=== PATIENT | male | born 1990 | race Caucasian/White ===

== ENCOUNTER 2020-06-25 09:47 | Inpatient (IN) | payer MEDICAID, OTHER ==
[~2020-06-25] VITALS: Ht 165.1 cm; Wt 113.4 kg
[2020-06-25] MEDS ORDERED: MORPHINE SULFATE 4 MG/ML CPJ (NOT FOR IM USE) IV STA (10:23)
[2020-06-25] MEDS ORDERED: MAGNESIUM/ALUMINUM HYDROXIDE/SIMETHICONE 30ML UDC PO STA (10:23)
[2020-06-25] MEDS ORDERED: FAMOTIDINE 20MG/2ML VIAL IV STA (10:23)
[2020-06-25] MEDS ORDERED: SODIUM CHLORIDE 0.9% 1,000 ML IV ONE (10:30)
[2020-06-25 10:38] LABS: EOSINOPHILS % 0.3 % (0.0-5.0); HEMATOCRIT. 35.2 % (42.0-52.0); HEMOGLOBIN. 12.3 g/dL (14.0-18.0); LYMPHOCYTES % 11.1 % (20.0-50.0); MEAN CORPUSCULAR HEMOGLOBIN 31.2 pg (28.0-32.0); MEAN CORPUSCULAR VOLUME 89.1 fL (80.0-94.0); MEAN PLATELET VOLUME 8.1 fl (7.4-10.4); MONOCYTES % 8.6 % (2.0-8.0); PLATELET 113 x1000/uL (130-400); RED BLOOD CELL COUNT 3.95 mill/uL (4.7-6.1); RED CELL DISTRIBUTION WIDTH 14.9 % (11.6-14.6)
[2020-06-25 10:48] LABS: INR 2.2; PROTHROMBIN TIME 22.3 sec (9.6-11.0)
[2020-06-25 10:52] LABS: CHLORIDE 89 mEq/L (98-107)
[2020-06-25 10:56] LABS: CLARITY URINE TURBID (CLEAR); COLOR URINE ORANGE (YELLOW); KETONES URINE 1+ (NEGATIVE); LEUKOCYTE ESTERASE URINE 2+ (NEGATIVE); NITRITE URINE POSITIVE (NEGATIVE); OCCULT BLOOD URINE NEGATIVE (NEGATIVE); PROTEIN URINE 1+ (NEGATIVE); SPECIFIC GRAVITY URINE 1.024 (1.005-1.030); UROBILINOGEN URINE >=8.0 E.U./dL (0.2-1.0)
[2020-06-25] MEDS ORDERED: METRONIDAZOLE 500 MG PREMIX 100 ML IV NR (15:15)
[2020-06-25] MEDS ORDERED: CEFTRIAXONE 1 G PREMIX 50 ML IV NR (15:15)
[2020-06-25] MEDS ORDERED: SODIUM CHLORIDE 0.9% 1,000 ML IV NR (15:15)
[2020-06-25] MEDS ORDERED: MORPHINE SULFATE 4 MG/ML CPJ (NOT FOR IM USE) IV ONE (15:30)
[2020-06-25] MEDS ORDERED: IOHEXOL-300 100 ML BOTTLE ONE (15:35)
[2020-06-25] MEDS ORDERED: POTASSIUM CHLORIDE INJ 40 MEQ in DEXT 5% WATER 250 ML IV NR (16:00)
[2020-06-25] MEDS ORDERED: IPRATROPIUM/ALBUTEROL 0.5-3(2.5)MG/3ML NEB HHN PRN (17:45)
[2020-06-25] MEDS ORDERED: CLONIDINE 0.1MG TABLET PO PRN (17:45)
[2020-06-25] MEDS: SODIUM CHLORIDE 0.9% 1,000 ML IV SCH ×2 (17:59→23:44)
[2020-06-25] MEDS ORDERED: ONDANSETRON HCL 4MG/2ML INJ IV ONE (18:15)
[2020-06-25] MEDS: ACETAMINOPHEN 325MG TABLET PO PRN (18:23)
[2020-06-25] MEDS: DIPHENHYDRAMINE 50MG/ML VIAL IV PRN (18:25)
[2020-06-25 21:24] VITALS: BP 130/84
[2020-06-25] MEDS ORDERED: INFLUENZA VACCINE 05/PF 0.5 ML VIAL IM ONE (22:30)
[2020-06-25] MEDS ORDERED: PNEUMOCOCCAL 23-VAL P-SAC VAC 0.5 ML IM ONE (22:30)
[2020-06-25] MEDS: ONDANSETRON HCL 4MG/2ML INJ IV PRN (22:32)
[2020-06-25] MEDS: MORPHINE SULFATE 2 MG/ML CPJ (NOT FOR IM USE) IV PRN (22:35)
[2020-06-25] MEDS: METRONIDAZOLE 500 MG PREMIX 100 ML IV SCH (23:43)
[2020-06-26 00:16] VITALS: BP 127/69
[2020-06-26] MEDS: ONDANSETRON HCL 4MG/2ML INJ IV PRN ×3 (03:06→20:39)
[2020-06-26] MEDS: MORPHINE SULFATE 2 MG/ML CPJ (NOT FOR IM USE) IV PRN ×3 (03:08→20:40)
[2020-06-26 03:31] VITALS: BP 122/71
[2020-06-26] MEDS ORDERED: OLAN10TA3 PO (04:19)
[2020-06-26 05:35] LABS: BASOPHILS % 0.6 % (0.0-2.0); EOSINOPHILS % 0.6 % (0.0-5.0); HEMATOCRIT. 32.4 % (42.0-52.0); HEMOGLOBIN. 11.3 g/dL (14.0-18.0); LYMPHOCYTES % 7.5 % (20.0-50.0); MEAN CORPUSCULAR HEMOGLOBIN 31.1 pg (28.0-32.0); MEAN CORPUSCULAR VOLUME 89.2 fL (80.0-94.0); MONOCYTES % 9.7 % (2.0-8.0); NEUTROPHILS % 81.6 % (40.0-76.0); PLATELET 94 x1000/uL (130-400); RED BLOOD CELL COUNT 3.63 mill/uL (4.7-6.1); RED CELL DISTRIBUTION WIDTH 15.3 % (11.6-14.6)
[2020-06-26 05:46] LABS: CHLORIDE 95 mEq/L (98-107)
[2020-06-26 05:55] LABS: LDL CHOLESTEROL 65 mg/dL (5-100)
[2020-06-26 05:57] LABS: HDL CHOLESTEROL 12 mg/dL (40-59)
[2020-06-26] MEDS: METRONIDAZOLE 500 MG PREMIX 100 ML IV SCH ×3 (06:47→22:15)
[2020-06-26 08:00] VITALS: BP 130/76
[2020-06-26 12:00] VITALS: BP 117/74
[2020-06-26] MEDS ORDERED: CEFTRIAXONE 1,000 MG in DEXTROSE 5% WATER 50 ML IV SCH (15:00)
[2020-06-26] MEDS: SODIUM CHLORIDE 0.9% 1,000 ML IV SCH (15:59)
[2020-06-26 16:00] VITALS: BP 130/75
[2020-06-26] MEDS: CHLORDIAZEPOXIDE 25MG CAPSULE PO SCH ×2 (16:20→22:15)
[2020-06-26] MEDS: HYDROCODONE/ACETAMINOPHEN 5/325MG TABLET PO PRN (17:43)
[2020-06-26 20:00] VITALS: BP 116/65
[2020-06-26] MEDS: CEFTRIAXONE 1,000 MG in DEXTROSE 5% WATER 50 ML IV SCH (20:36)
[2020-06-27] VITALS: BP 117/71
[2020-06-27] MEDS: ONDANSETRON HCL 4MG/2ML INJ IV PRN (01:39)
[2020-06-27] MEDS: MORPHINE SULFATE 2 MG/ML CPJ (NOT FOR IM USE) IV PRN ×3 (01:40→15:12)
[2020-06-27 04:00] VITALS: BP 127/75
[2020-06-27] MEDS: DIPHENHYDRAMINE 50MG/ML VIAL IV PRN ×2 (04:39→16:26)
[2020-06-27] MEDS: SODIUM CHLORIDE 0.9% 1,000 ML IV SCH ×3 (04:49→21:13)
[2020-06-27] MEDS: METRONIDAZOLE 500 MG PREMIX 100 ML IV SCH ×3 (06:12→22:00)
[2020-06-27] MEDS: CHLORDIAZEPOXIDE 25MG CAPSULE PO SCH ×3 (06:12→22:28)
[2020-06-27 08:00] VITALS: BP 133/80
[2020-06-27 10:33] LABS: HEMATOCRIT. 22.4 % (42.0-52.0); HEMOGLOBIN. 7.7 g/dL (14.0-18.0); MEAN CORPUSCULAR HEMOGLOBIN 31.5 pg (28.0-32.0); MEAN CORPUSCULAR VOLUME 91.1 fL (80.0-94.0); MEAN PLATELET VOLUME 7.9 fl (7.4-10.4); PLATELET 75 x1000/uL (130-400); RED BLOOD CELL COUNT 2.45 mill/uL (4.7-6.1); RED CELL DISTRIBUTION WIDTH 15.5 % (11.6-14.6)
[2020-06-27 12:02] VITALS: BP 125/73
[2020-06-27 12:35] LABS: PLATELET ESTIMATE DECREASED
[2020-06-27 13:50] LABS: CHLORIDE 96 mEq/L (98-107)
[2020-06-27 13:55] LABS: AMYLASE 33 IU/L (25-115)
[2020-06-27 13:56] LABS: TOTAL IRON BINDING CAPACITY 86 ug/dL (250-450)
[2020-06-27 16:04] VITALS: BP 127/67
[2020-06-27 16:26] LABS: HEPATITIS B SURFACE ANTIGEN NEGATIVE
[2020-06-27 16:55] LABS: HEPATITIS A AB IGM NEGATIVE (NEGATIVE)
[2020-06-27 20:00] VITALS: BP 129/73
[2020-06-27] MEDS: CEFTRIAXONE 1,000 MG in DEXTROSE 5% WATER 50 ML IV SCH ×2 (20:00→23:40)
[2020-06-27] MEDS: OLANZAPINE 10 MG/VIAL IM PRN (20:13)
[2020-06-27] MEDS: LACTULOSE 20G/30ML UDC PO SCH (22:29)
[2020-06-27] MEDS: HALOPERIDOL LACTATE 5MG/ML VIAL IM PRN (23:13)
[2020-06-28] VITALS (7 sets, daily range): BP systolic 100–135; BP diastolic 49–80
[2020-06-28] MEDS: MORPHINE SULFATE 2 MG/ML CPJ (NOT FOR IM USE) IV PRN (02:20)
[2020-06-28] MEDS: SODIUM CHLORIDE 0.9% 1,000 ML IV SCH ×3 (05:13→20:41)
[2020-06-28] MEDS: LACTULOSE 20G/30ML UDC PO SCH ×3 (05:36→21:38)
[2020-06-28] MEDS: CHLORDIAZEPOXIDE 25MG CAPSULE PO SCH ×3 (05:36→21:39)
[2020-06-28] MEDS: METRONIDAZOLE 500 MG PREMIX 100 ML IV SCH ×3 (05:46→21:39)
[2020-06-28 06:31] LABS: BASOPHILS % 0.8 % (0.0-2.0); CHLORIDE 99 mEq/L (98-107); EOSINOPHILS % 0.4 % (0.0-5.0); HEMATOCRIT. 31.4 % (42.0-52.0); HEMOGLOBIN. 10.9 g/dL (14.0-18.0); LYMPHOCYTES % 9.1 % (20.0-50.0); MEAN CORPUSCULAR HEMOGLOBIN 31.1 pg (28.0-32.0); MEAN CORPUSCULAR VOLUME 89.6 fL (80.0-94.0); MEAN PLATELET VOLUME 7.9 fl (7.4-10.4); MONOCYTES % 8.8 % (2.0-8.0); NEUTROPHILS % 80.9 % (40.0-76.0); PLATELET 126 x1000/uL (130-400); RED BLOOD CELL COUNT 3.51 mill/uL (4.7-6.1); RED CELL DISTRIBUTION WIDTH 15.6 % (11.6-14.6)
[2020-06-28 06:37] LABS: AMYLASE 32 IU/L (25-115)
[2020-06-28] MEDS ORDERED: LORAZEPAM 2MG/ML CPJ IV NR (14:45)
[2020-06-28] MEDS: DIPHENHYDRAMINE 50MG/ML VIAL IV PRN ×2 (16:12→21:39)
[2020-06-28] MEDS: HALOPERIDOL LACTATE 5MG/ML VIAL IM PRN (17:39)
[2020-06-28] MEDS ORDERED: DIPHENHYDRAMINE 50MG/ML VIAL IV NR (18:45)
[2020-06-28] MEDS: LORAZEPAM 2MG/ML CPJ IV PRN (18:53)
[2020-06-28] MEDS: CEFTRIAXONE 1,000 MG in DEXTROSE 5% WATER 50 ML IV SCH (20:40)
[2020-06-28] MEDS: OLANZAPINE 10 MG/VIAL IM PRN (21:39)
[2020-06-29] VITALS: BP 122/73
[2020-06-29 04:00] VITALS: BP 131/67
[2020-06-29] MEDS: SODIUM CHLORIDE 0.9% 1,000 ML IV SCH ×2 (04:35→13:54)
[2020-06-29] MEDS: LACTULOSE 20G/30ML UDC PO SCH ×3 (05:23→22:45)
[2020-06-29] MEDS: LORAZEPAM 2MG/ML CPJ IV PRN ×2 (05:23→13:51)
[2020-06-29] MEDS: METRONIDAZOLE 500 MG PREMIX 100 ML IV SCH ×3 (05:23→21:36)
[2020-06-29] MEDS: CHLORDIAZEPOXIDE 25MG CAPSULE PO SCH ×3 (05:23→22:42)
[2020-06-29 08:00] VITALS: BP 110/70
[2020-06-29 08:19] LABS: HEMATOCRIT. 31.3 % (42.0-52.0); HEMOGLOBIN. 10.6 g/dL (14.0-18.0); MEAN CORPUSCULAR HEMOGLOBIN 31.1 pg (28.0-32.0); MEAN CORPUSCULAR VOLUME 91.3 fL (80.0-94.0); MEAN PLATELET VOLUME 7.5 fl (7.4-10.4); PLATELET 120 x1000/uL (130-400); RED BLOOD CELL COUNT 3.43 mill/uL (4.7-6.1); RED CELL DISTRIBUTION WIDTH 16.3 % (11.6-14.6)
[2020-06-29 08:29] LABS: CHLORIDE 104 mEq/L (98-107)
[2020-06-29 08:33] LABS: AMYLASE 36 IU/L (25-115)
[2020-06-29] MEDS ORDERED: POTASSIUM CHLORIDE 20MEQ TABLET SR PO SCH (08:45)
[2020-06-29 09:41] LABS: PLATELET ESTIMATE SLIGHTLY DECREASED
[2020-06-29 12:00] VITALS: BP 120/77
[2020-06-29 16:00] VITALS: BP 119/62
[2020-06-29 20:00] VITALS: BP 107/62
[2020-06-29] MEDS: CEFTRIAXONE 1,000 MG in DEXTROSE 5% WATER 50 ML IV SCH (20:19)
[2020-06-30] VITALS (7 sets, daily range): BP systolic 110–138; BP diastolic 63–105
[2020-06-30] MEDS: SODIUM CHLORIDE 0.9% 1,000 ML IV SCH ×3 (02:50→13:18)
[2020-06-30] MEDS: METRONIDAZOLE 500 MG PREMIX 100 ML IV SCH ×2 (05:32→13:17)
[2020-06-30] MEDS: CHLORDIAZEPOXIDE 25MG CAPSULE PO SCH ×3 (05:32→22:29)
[2020-06-30] MEDS: LACTULOSE 20G/30ML UDC PO SCH ×3 (05:33→22:00)
[2020-06-30 05:36] LABS: CHLORIDE 111 mEq/L (98-107)
[2020-06-30 05:42] LABS: AMYLASE 58 IU/L (25-115)
[2020-06-30 06:04] LABS: BASOPHILS % 0.8 % (0.0-2.0); EOSINOPHILS % 0.7 % (0.0-5.0); HEMATOCRIT. 31.5 % (42.0-52.0); HEMOGLOBIN. 10.8 g/dL (14.0-18.0); LYMPHOCYTES % 8.5 % (20.0-50.0); MEAN CORPUSCULAR HEMOGLOBIN 31.7 pg (28.0-32.0); MEAN CORPUSCULAR VOLUME 92.2 fL (80.0-94.0); MEAN PLATELET VOLUME 7.4 fl (7.4-10.4); MONOCYTES % 10.8 % (2.0-8.0); NEUTROPHILS % 79.2 % (40.0-76.0); PLATELET 129 x1000/uL (130-400); RED BLOOD CELL COUNT 3.42 mill/uL (4.7-6.1); RED CELL DISTRIBUTION WIDTH 16.6 % (11.6-14.6)
[2020-06-30] MEDS: LORAZEPAM 2MG/ML CPJ IV PRN ×3 (10:15→19:35)
[2020-06-30] MEDS: HALOPERIDOL LACTATE 5MG/ML VIAL IM PRN ×2 (13:57→20:37)
[2020-06-30] MEDS: DIPHENHYDRAMINE 50MG/ML VIAL IV PRN (17:44)
[2020-06-30] MEDS: CEFTRIAXONE 1,000 MG in DEXTROSE 5% WATER 50 ML IV SCH (19:35)
[2020-06-30] MEDS: RIFAXIMIN 550 MG TABLET PO SCH (22:24)
[2020-06-30] MEDS ORDERED: OLANZAPINE 10 MG/VIAL IM NR (23:30)
[2020-07-01] VITALS (7 sets, daily range): BP systolic 102–122; BP diastolic 62–86
[2020-07-01] MEDS ORDERED: LORAZEPAM 2MG/ML CPJ IM PRN (01:15)
[2020-07-01] MEDS: HALOPERIDOL LACTATE 5MG/ML VIAL IM PRN ×2 (04:48→13:58)
[2020-07-01] MEDS: LACTULOSE 20G/30ML UDC PO SCH (05:15)
[2020-07-01] MEDS: METRONIDAZOLE 500 MG PREMIX 100 ML IV SCH (06:24)
[2020-07-01] MEDS: CHLORDIAZEPOXIDE 25MG CAPSULE PO SCH ×2 (06:54→14:39)
[2020-07-01 07:28] LABS: BASOPHILS % 0.9 % (0.0-2.0); EOSINOPHILS % 0.6 % (0.0-5.0); HEMATOCRIT. 31.6 % (42.0-52.0); HEMOGLOBIN. 10.8 g/dL (14.0-18.0); LYMPHOCYTES % 8.5 % (20.0-50.0); MEAN CORPUSCULAR HEMOGLOBIN 31.6 pg (28.0-32.0); MEAN CORPUSCULAR VOLUME 92.4 fL (80.0-94.0); MONOCYTES % 7.6 % (2.0-8.0); NEUTROPHILS % 82.4 % (40.0-76.0); PLATELET 136 x1000/uL (130-400); RED BLOOD CELL COUNT 3.42 mill/uL (4.7-6.1); RED CELL DISTRIBUTION WIDTH 17.1 % (11.6-14.6)
[2020-07-01 08:11] LABS: CHLORIDE 115 mEq/L (98-107)
[2020-07-01 08:19] LABS: AMYLASE 123 IU/L (25-115)
[2020-07-01] MEDS: RIFAXIMIN 550 MG TABLET PO SCH ×2 (08:26→20:03)
[2020-07-01] MEDS: HYDROCODONE/ACETAMINOPHEN 5/325MG TABLET PO PRN (08:29)
[2020-07-01] MEDS ORDERED: LORAZEPAM 2MG/ML CPJ IV NR (08:30)
[2020-07-01] MEDS ORDERED: LACTULOSE 300 ML in WATER FOR IRRIGATION,STERILE 700 ML IR NR (10:00)
[2020-07-01] MEDS: DIPHENHYDRAMINE 50MG/ML VIAL IV PRN (13:58)
[2020-07-01] MEDS ORDERED: KCL 20MEQ/100ML PREMIX 100 ML IV ONE (16:30)
[2020-07-01] MEDS: SODIUM CHLORIDE 0.45% 1,000 ML IV SCH (16:40)
[2020-07-01] MEDS: LORAZEPAM 2MG/ML CPJ IV PRN (17:11)
[2020-07-01] MEDS ORDERED: HYDROCODONE/ACETAMINOPHEN 5/325MG TABLET PO PRN (19:00)
[2020-07-01 19:17] LABS: PHOSPHORUS 2.1 mg/dL (2.5-4.9)
[2020-07-02] VITALS: BP 105/60
[2020-07-02 04:00] VITALS: BP 128/79
[2020-07-02] MEDS: LORAZEPAM 2MG/ML CPJ IV PRN ×3 (04:29→22:53)
[2020-07-02 07:27] LABS: BASOPHILS % 0.5 % (0.0-2.0); EOSINOPHILS % 0.7 % (0.0-5.0); HEMATOCRIT. 33.4 % (42.0-52.0); HEMOGLOBIN. 11.4 g/dL (14.0-18.0); LYMPHOCYTES % 7.5 % (20.0-50.0); MEAN CORPUSCULAR HEMOGLOBIN 31.8 pg (28.0-32.0); MEAN CORPUSCULAR VOLUME 93.7 fL (80.0-94.0); MEAN PLATELET VOLUME 7.3 fl (7.4-10.4); MONOCYTES % 6.8 % (2.0-8.0); NEUTROPHILS % 84.5 % (40.0-76.0); PLATELET 143 x1000/uL (130-400); RED BLOOD CELL COUNT 3.57 mill/uL (4.7-6.1)
[2020-07-02 07:29] LABS: CHLORIDE 115 mEq/L (98-107)
[2020-07-02 07:37] LABS: AMYLASE 94 IU/L (25-115)
[2020-07-02 08:00] VITALS: BP 130/75
[2020-07-02] MEDS: SODIUM CHLORIDE 0.45% 1,000 ML IV SCH ×3 (09:53→22:53)
[2020-07-02] MEDS: RIFAXIMIN 550 MG TABLET PO SCH ×2 (09:53→22:52)
[2020-07-02 12:00] VITALS: BP 126/85
[2020-07-02 16:00] VITALS: BP 107/88
[2020-07-02] MEDS: HALOPERIDOL LACTATE 5MG/ML VIAL IM PRN (16:54)
[2020-07-02 20:00] VITALS: BP 144/78
[2020-07-02 21:09] LABS: ETHANOL BLOOD < 10 mg/dL
[2020-07-02 21:14] LABS: T4 FREE 1.24 ng/dL (0.76-1.46)
[2020-07-02 21:19] LABS: VITAMIN B12 SERUM > 2000.0 pg/mL (211-911)
[2020-07-03] VITALS: BP 115/55
[2020-07-03] MEDS: HALOPERIDOL LACTATE 5MG/ML VIAL IM PRN ×3 (01:37→23:07)
[2020-07-03 04:00] VITALS: BP 121/59
[2020-07-03] MEDS: LORAZEPAM 2MG/ML CPJ IV PRN (06:29)
[2020-07-03 07:57] VITALS: BP 121/69
[2020-07-03] MEDS: FOLIC ACID 1MG TABLET PO SCH (09:00)
[2020-07-03] MEDS: RIFAXIMIN 550 MG TABLET PO SCH ×2 (09:00→21:20)
[2020-07-03] MEDS: MULTIVITAMINS,THER W-MINERALS TABLET PO SCH (09:00)
[2020-07-03] MEDS: THIAMINE HCL 100MG TABLET PO SCH (09:00)
[2020-07-03] MEDS ORDERED: LORAZEPAM 2MG/ML CPJ IV NR (09:30)
[2020-07-03] MEDS: DIPHENHYDRAMINE 50MG/ML VIAL IV PRN (09:37)
[2020-07-03 11:50] VITALS: BP 116/73
[2020-07-03 15:58] VITALS: BP 128/76
[2020-07-03] MEDS: SODIUM CHLORIDE 0.45% 1,000 ML IV SCH (17:30)
[2020-07-03 19:10] LABS: HEMATOCRIT. 33.5 % (42.0-52.0); HEMOGLOBIN. 11.5 g/dL (14.0-18.0); MEAN CORPUSCULAR HEMOGLOBIN 32.4 pg (28.0-32.0); MEAN CORPUSCULAR VOLUME 94.7 fL (80.0-94.0); MEAN PLATELET VOLUME 7.5 fl (7.4-10.4); PLATELET 154 x1000/uL (130-400); RED BLOOD CELL COUNT 3.53 mill/uL (4.7-6.1)
[2020-07-03 19:27] LABS: CHLORIDE 120 mEq/L (98-107)
[2020-07-03 19:40] LABS: AMYLASE 115 IU/L (25-115)
[2020-07-03 19:49] LABS: PLATELET ESTIMATE NORMAL
[2020-07-03] MEDS ORDERED: CEFTRIAXONE 1,000 MG in DEXTROSE 5% WATER 50 ML IV SCH (22:00)
[2020-07-03] MEDS: METRONIDAZOLE 500 MG PREMIX 100 ML IV SCH (22:01)
[2020-07-04] VITALS (9 sets, daily range): BP systolic 88–142; BP diastolic 43–77
[2020-07-04] MEDS: SODIUM CHLORIDE 0.45% 1,000 ML IV SCH ×2 (04:17→10:26)
[2020-07-04] MEDS: METRONIDAZOLE 500 MG PREMIX 100 ML IV SCH ×2 (05:25→16:41)
[2020-07-04] MEDS: LORAZEPAM 2MG/ML CPJ IV PRN ×2 (05:25→15:40)
[2020-07-04 06:18] LABS: HEMOGLOBIN. 11.4 g/dL (14.0-18.0); MEAN CORPUSCULAR HEMOGLOBIN 31.9 pg (28.0-32.0); MEAN CORPUSCULAR VOLUME 95.3 fL (80.0-94.0); MEAN PLATELET VOLUME 7.9 fl (7.4-10.4); PLATELET 172 x1000/uL (130-400); RED BLOOD CELL COUNT 3.57 mill/uL (4.7-6.1); RED CELL DISTRIBUTION WIDTH 18.1 % (11.6-14.6)
[2020-07-04 06:31] LABS: CHLORIDE 119 mEq/L (98-107)
[2020-07-04 06:50] LABS: AMYLASE 99 IU/L (25-115)
[2020-07-04 06:52] LABS: PHOSPHORUS 2.9 mg/dL (2.5-4.9)
[2020-07-04] MEDS: MULTIVITAMINS,THER W-MINERALS TABLET PO SCH (09:00)
[2020-07-04] MEDS: RIFAXIMIN 550 MG TABLET PO SCH ×2 (09:00→21:00)
[2020-07-04] MEDS: THIAMINE HCL 100MG TABLET PO SCH (09:00)
[2020-07-04] MEDS: FOLIC ACID 1MG TABLET PO SCH (09:00)
[2020-07-04 11:05] LABS: BG BASE EXCESS -2.4 mmol/L (-2.0-2.0); BG CARBOXYHEMOGLOBIN 1.2 % (0.5-1.5); BG DEOXYHEMOGLOBIN 12.2 % (0.0-5.0); BG FRACTION INSPIRED OXYGEN 32; BG HCO3 ACT 22.1 mmol/L (22.0-26.0); BG METHEMOGLOBIN 0.3 % (0.0-1.5); BG OXYGEN SATURATION 87.6 % (92.0-98.5); BG OXYHEMOGLOBIN 86.3 % (94.0-97.0); BG PCO2 37.1 mmHg (35.0-45.0); BG PH 7.393 (7.350-7.450); BG PO2 57.9 mmHg (75.0-100.0); BG TOTAL HEMOGLOBIN 11.7 g/dL (12.0-18.0); BG VENT MODE NASAL CANNULA
[2020-07-04] MEDS ORDERED: HYDROMORPHONE HCL/PF 2MG/ML CPJ IV PRN (15:30)
[2020-07-04] MEDS: ONDANSETRON HCL 4MG/2ML INJ IV PRN (15:47)
[2020-07-04 16:26] LABS: PLATELET ESTIMATE NORMAL
[2020-07-04] MEDS: MEROPENEM 1,000 MG in SODIUM CHLORIDE 0.9% 100 ML IV SCH (20:31)
[2020-07-04] MEDS: SODIUM CHLORIDE 0.9% 1,000 ML IV SCH (20:32)
[2020-07-04] MEDS: IPRATROPIUM/ALBUTEROL 0.5-3(2.5)MG/3ML NEB HHN SCH (21:05)
[2020-07-04] MEDS: ACETYLCYSTEINE 100MG/ML 10% VIAL 4ML INH SCH (21:05)
[2020-07-04] MEDS: AZITHROMYCIN 500 MG in DEXT 5% WATER 250 ML IV SCH (21:50)
[2020-07-05] VITALS (56 sets, daily range): BP systolic 66–156; BP diastolic 19–87
[2020-07-05] MEDS: IPRATROPIUM/ALBUTEROL 0.5-3(2.5)MG/3ML NEB HHN SCH ×4 (00:54→20:26)
[2020-07-05] MEDS: LORAZEPAM 2MG/ML CPJ IV PRN (01:56)
[2020-07-05] MEDS: MEROPENEM 1,000 MG in SODIUM CHLORIDE 0.9% 100 ML IV SCH ×3 (05:23→15:45)
[2020-07-05] MEDS: ACETYLCYSTEINE 100MG/ML 10% VIAL 4ML INH SCH (06:00)
[2020-07-05 07:23] LABS: CHLORIDE 120 mEq/L (98-107)
[2020-07-05 07:28] LABS: HEMATOCRIT. 32.5 % (42.0-52.0); HEMOGLOBIN. 10.3 g/dL (14.0-18.0); MEAN CORPUSCULAR HEMOGLOBIN 32.2 pg (28.0-32.0); MEAN CORPUSCULAR VOLUME 101.6 fL (80.0-94.0); MEAN PLATELET VOLUME 8.6 fl (7.4-10.4); PLATELET 163 x1000/uL (130-400); RED CELL DISTRIBUTION WIDTH 20.4 % (11.6-14.6)
[2020-07-05 07:41] LABS: AMYLASE 73 IU/L (25-115); PHOSPHORUS 7.8 mg/dL (2.5-4.9)
[2020-07-05 08:53] LABS: BG BASE EXCESS -12.4 mmol/L (-2.0-2.0); BG CARBOXYHEMOGLOBIN 1.1 % (0.5-1.5); BG DEOXYHEMOGLOBIN 16.3 % (0.0-5.0); BG FRACTION INSPIRED OXYGEN 100; BG HCO3 ACT 16.1 mmol/L (22.0-26.0); BG METHEMOGLOBIN 0.3 % (0.0-1.5); BG OXYGEN SATURATION 83.5 % (92.0-98.5); BG OXYHEMOGLOBIN 82.3 % (94.0-97.0); BG PCO2 48.2 mmHg (35.0-45.0); BG PH 7.141 (7.350-7.450); BG PO2 62.1 mmHg (75.0-100.0); BG SAMPLE SITE RIGHT BRACHIAL; BG TOTAL HEMOGLOBIN 10.3 g/dL (12.0-18.0); BG VENT MODE MASK - NRB
[2020-07-05] MEDS: RIFAXIMIN 550 MG TABLET PO SCH ×2 (09:00→21:17)
[2020-07-05] MEDS: FOLIC ACID 1MG TABLET PO SCH (09:00)
[2020-07-05] MEDS: THIAMINE HCL 100MG TABLET PO SCH (09:00)
[2020-07-05] MEDS: MULTIVITAMINS,THER W-MINERALS TABLET PO SCH (09:00)
[2020-07-05] MEDS ORDERED: DEXTROSE 50% WATER 50ML SYRINGE IV ONE ×2 (09:00→09:01)
[2020-07-05] MEDS ORDERED: EPINEPHRINE 0.1MG/ML (1:10,000) 10ML SYR ONE (09:15)
[2020-07-05] MEDS ORDERED: CALCIUM CHLORIDE 1GM/10ML SYR IV ONE (09:15)
[2020-07-05] MEDS ORDERED: SODIUM BICARBONATE 8.4% 1 MEQ/ML 50ML SYR IV ONE ×2 (09:15→12:15)
[2020-07-05] MEDS ORDERED: ADENOSINE 3 MG/ML 2ML VIAL IV ONE (09:38)
[2020-07-05] MEDS ORDERED: FENTANYL CITRATE/PF 1,000 MCG in SODIUM CHLORIDE 0.9% 80 ML IV PRN (10:00)
[2020-07-05] MEDS ORDERED: ALBUMIN HUMAN 25GM/100ML (25%) IV NR (10:00)
[2020-07-05] MEDS ORDERED: SODIUM BICARBONATE 8.4% 1 MEQ/ML 50ML SYR IV NR (10:00)
[2020-07-05] MEDS ORDERED: NOREPINEPHRINE 8MG/250ML PMX 250 ML IV ONE (10:15)
[2020-07-05] MEDS: SODIUM BICARBONATE 100 MEQ in DEXTROSE 5% WATER 1,000 ML IV SCH (10:53)
[2020-07-05] MEDS: PHENYLEPHRINE 100 MG in DEXT 5% WATER 240 ML IV PRN (10:55)
[2020-07-05] MEDS ORDERED: SODIUM POLYSTYRENE SULFONATE 15 G/60 ML BOT NG SCH (11:00)
[2020-07-05 12:01] LABS: BG CARBOXYHEMOGLOBIN 0.5 % (0.5-1.5); BG DEOXYHEMOGLOBIN 16.8 % (0.0-5.0); BG FRACTION INSPIRED OXYGEN 100; BG HCO3 ACT 14.6 mmol/L (22.0-26.0); BG METHEMOGLOBIN 0.3 % (0.0-1.5); BG OXYGEN SATURATION 83.1 % (92.0-98.5); BG OXYHEMOGLOBIN 82.4 % (94.0-97.0); BG PCO2 56.4 mmHg (35.0-45.0); BG PH 7.032 (7.350-7.450); BG PO2 65.5 mmHg (75.0-100.0); BG SAMPLE SITE LEFT RADIAL; BG TOTAL HEMOGLOBIN 11.8 g/dL (12.0-18.0); BG TOTAL RESPIRATORY RATE 30 b/min; BG VENT MODE VENT - AC
[2020-07-05 12:56] LABS: INR 3.3; PROTHROMBIN TIME 32.3 sec (9.6-11.0)
[2020-07-05 12:59] LABS: CHLORIDE 119 mEq/L (98-107)
[2020-07-05 13:02] LABS: HEMATOCRIT. 34.8 % (42.0-52.0); HEMOGLOBIN. 10.6 g/dL (14.0-18.0); MEAN CORPUSCULAR VOLUME 105.6 fL (80.0-94.0); MEAN PLATELET VOLUME 9.8 fl (7.4-10.4); PLATELET 171 x1000/uL (130-400); RED CELL DISTRIBUTION WIDTH 22.2 % (11.6-14.6)
[2020-07-05 15:10] LABS: BG CARBOXYHEMOGLOBIN 0.4 % (0.5-1.5); BG DEOXYHEMOGLOBIN 6.4 % (0.0-5.0); BG FRACTION INSPIRED OXYGEN 100; BG HCO3 ACT 18.7 mmol/L (22.0-26.0); BG METHEMOGLOBIN 0.4 % (0.0-1.5); BG OXYGEN SATURATION 93.5 % (92.0-98.5); BG OXYHEMOGLOBIN 92.8 % (94.0-97.0); BG PCO2 48.3 mmHg (35.0-45.0); BG PH 7.206 (7.350-7.450); BG PO2 85.1 mmHg (75.0-100.0); BG SAMPLE SITE LEFT RADIAL; BG TOTAL HEMOGLOBIN 11.4 g/dL (12.0-18.0); BG TOTAL RESPIRATORY RATE 30 b/min; BG VENT MODE VENT - AC
[2020-07-05 15:10] LABS: NUCLEATED RED BLOOD CELLS 5 /100 WBC; PLATELET ESTIMATE NORMAL
[2020-07-05] MEDS: AZITHROMYCIN 500 MG in DEXT 5% WATER 250 ML IV SCH (15:45)
[2020-07-05] MEDS: MIDAZOLAM HCL 100 MG in DEXT 5% WATER 80 ML IV PRN ×2 (15:50→17:44)
[2020-07-05] MEDS: FENTANYL CITRATE/PF 2,500 MCG in SODIUM CHLORIDE 0.9% 200 ML IV PRN ×2 (16:06→22:09)
[2020-07-05] MEDS ORDERED: ETOMIDATE 2MG/ML 10ML VIAL IV ONE (17:00)
[2020-07-05] MEDS ORDERED: SUCCINYLCHOLINE CHLORIDE 200MG/10ML IV ONE (17:00)
[2020-07-05 17:38] LABS: *AMPHETAMINES SCREEN URINE NEGATIVE (NEGATIVE); *BARBITURATES SCREEN URINE NEGATIVE (NEGATIVE); *BENZODIAZEPINES SCREEN URINE PRESUMTIVE POSITIVE (NEGATIVE); *COCAINE SCREEN URINE NEGATIVE (NEGATIVE); CANNABINOID URINE SCREEN PRESUMTIVE POSITIVE (NEGATIVE); METHADONE URINE SCREEN NEGATIVE (NEGATIVE); PHENCYCLIDINE URINE SCREEN NEGATIVE (NEGATIVE)
[2020-07-05 17:45] LABS: OPIATES URINE SCREEN PRESUMTIVE POSITIVE (NEGATIVE)
[2020-07-05 20:18] LABS: PLATELET ESTIMATE NORMAL
[2020-07-06] VITALS (92 sets, daily range): BP systolic 65–112; BP diastolic 30–57
[2020-07-06] MEDS: IPRATROPIUM/ALBUTEROL 0.5-3(2.5)MG/3ML NEB HHN SCH ×6 (00:12→20:02)
[2020-07-06] MEDS: ACETYLCYSTEINE 100MG/ML 10% VIAL 4ML INH SCH ×3 (00:12→16:40)
[2020-07-06] MEDS: MIDAZOLAM HCL 100 MG in DEXT 5% WATER 80 ML IV PRN (00:16)
[2020-07-06] MEDS: NOREPINEPHRINE 32 MG in DEXT 5% WATER 218 ML IV PRN ×4 (00:27→20:55)
[2020-07-06] MEDS: PHENYLEPHRINE 100 MG in DEXT 5% WATER 240 ML IV PRN (01:12)
[2020-07-06 04:08] LABS: HIV SCREEN 4G Non Reactive (Non Reactive)
[2020-07-06] MEDS: MEROPENEM 1,000 MG in SODIUM CHLORIDE 0.9% 100 ML IV SCH ×3 (04:34→20:47)
[2020-07-06] MEDS: SODIUM BICARBONATE 100 MEQ in DEXTROSE 5% WATER 1,000 ML IV SCH (04:35)
[2020-07-06] MEDS: ACETAMINOPHEN 325MG TABLET PO PRN (04:35)
[2020-07-06 05:13] LABS: HEMATOCRIT. 33.4 % (42.0-52.0); HEMOGLOBIN. 10.5 g/dL (14.0-18.0); MEAN CORPUSCULAR HEMOGLOBIN 32.6 pg (28.0-32.0); MEAN CORPUSCULAR VOLUME 103.3 fL (80.0-94.0); MEAN PLATELET VOLUME 8.6 fl (7.4-10.4); PLATELET 229 x1000/uL (130-400); RED BLOOD CELL COUNT 3.23 mill/uL (4.7-6.1)
[2020-07-06 05:21] LABS: CHLORIDE 115 mEq/L (98-107)
[2020-07-06 05:34] LABS: PHOSPHORUS 7.3 mg/dL (2.5-4.9)
[2020-07-06 05:36] LABS: CREATINE KINASE 696 IU/L (39-308)
[2020-07-06 08:54] LABS: BG BASE EXCESS -12.9 mmol/L (-2.0-2.0); BG CARBOXYHEMOGLOBIN 0.4 % (0.5-1.5); BG DEOXYHEMOGLOBIN 2.9 % (0.0-5.0); BG FRACTION INSPIRED OXYGEN 100; BG HCO3 ACT 15.6 mmol/L (22.0-26.0); BG METHEMOGLOBIN 0.4 % (0.0-1.5); BG OXYGEN SATURATION 97.1 % (92.0-98.5); BG OXYHEMOGLOBIN 96.3 % (94.0-97.0); BG PCO2 47.1 mmHg (35.0-45.0); BG PH 7.138 (7.350-7.450); BG PO2 108.1 mmHg (75.0-100.0); BG SAMPLE SITE RIGHT BRACHIAL; BG TOTAL HEMOGLOBIN 10.2 g/dL (12.0-18.0); BG TOTAL RESPIRATORY RATE 30 b/min; BG VENT MODE VENT - AC
[2020-07-06] MEDS: MULTIVITAMINS,THER W-MINERALS TABLET PO SCH (09:00)
[2020-07-06] MEDS: FOLIC ACID 1MG TABLET PO SCH (09:00)
[2020-07-06] MEDS: THIAMINE HCL 100MG TABLET PO SCH (09:00)
[2020-07-06] MEDS: SODIUM BICARBONATE 8.4% 1 MEQ/ML 50ML SYR IV NR ×2 (09:22→09:51)
[2020-07-06] MEDS ORDERED: PHYTONADIONE 10MG/ML AMP SUBCUT SCH (09:30)
[2020-07-06] MEDS ORDERED: SODIUM BICARBONATE 150 MEQ in DEXTROSE 5% WATER 1,000 ML IV SCH (10:00)
[2020-07-06] MEDS ORDERED: SODIUM BICARBONATE IV SCH (11:00)
[2020-07-06] MEDS ORDERED: DEXTROSE 5% IV SCH (11:00)
[2020-07-06] MEDS ORDERED: WATER IV SCH (11:00)
[2020-07-06] MEDS: SODIUM BICARBONATE 50 MEQ in DEXTROSE 5% WATER 1,000 ML IV SCH (12:30)
[2020-07-06] MEDS ORDERED: LIDOCAINE HCL 1% 20ML VIAL (Pyxis) INJ ONE (12:46)
[2020-07-06] MEDS ORDERED: SODIUM BICARBONATE 4% (2.4MEQ) 5ML VIAL IV ONE (12:46)
[2020-07-06 20:11] LABS: NUCLEATED RED BLOOD CELLS 7 /100 WBC; PLATELET ESTIMATE NORMAL
[2020-07-06] MEDS: AZITHROMYCIN 500 MG in DEXT 5% WATER 250 ML IV SCH (21:48)
[2020-07-06] MEDS: VASOPRESSIN 20 UNIT in SODIUM CHLORIDE 0.9% 99 ML IV PRN (23:41)
[2020-07-07] VITALS (128 sets, daily range): BP systolic 39–142; BP diastolic 18–80
[2020-07-07] MEDS: ACETYLCYSTEINE 100MG/ML 10% VIAL 4ML INH SCH ×4 (00:05→16:20)
[2020-07-07] MEDS: PHENYLEPHRINE 100 MG in DEXT 5% WATER 240 ML IV PRN ×3 (00:46→14:55)
[2020-07-07] MEDS: NOREPINEPHRINE 32 MG in DEXT 5% WATER 218 ML IV PRN ×3 (02:41→17:51)
[2020-07-07] MEDS: IPRATROPIUM/ALBUTEROL 0.5-3(2.5)MG/3ML NEB HHN SCH ×5 (03:56→16:20)
[2020-07-07 04:37] LABS: HEMATOCRIT. 30.2 % (42.0-52.0); HEMOGLOBIN. 9.8 g/dL (14.0-18.0); MEAN CORPUSCULAR HEMOGLOBIN 32.5 pg (28.0-32.0); MEAN CORPUSCULAR VOLUME 100.7 fL (80.0-94.0); MEAN PLATELET VOLUME 8.4 fl (7.4-10.4); PLATELET 139 x1000/uL (130-400); RED CELL DISTRIBUTION WIDTH 20.3 % (11.6-14.6)
[2020-07-07 04:43] LABS: CHLORIDE 103 mEq/L (98-107)
[2020-07-07 04:58] LABS: AMYLASE 74 IU/L (25-115); PHOSPHORUS 6.1 mg/dL (2.5-4.9)
[2020-07-07] MEDS: MEROPENEM 1,000 MG in SODIUM CHLORIDE 0.9% 100 ML IV SCH (05:24)
[2020-07-07] MEDS: VASOPRESSIN 20 UNIT in SODIUM CHLORIDE 0.9% 99 ML IV PRN (07:44)
[2020-07-07 08:22] LABS: BG BASE EXCESS -3.9 mmol/L (-2.0-2.0); BG CARBOXYHEMOGLOBIN 0.1 % (0.5-1.5); BG DEOXYHEMOGLOBIN 2.4 % (0.0-5.0); BG FRACTION INSPIRED OXYGEN 100; BG HCO3 ACT 20.5 mmol/L (22.0-26.0); BG METHEMOGLOBIN 0.1 % (0.0-1.5); BG OXYGEN SATURATION 97.6 % (92.0-98.5); BG OXYHEMOGLOBIN 97.4 % (94.0-97.0); BG PCO2 34.4 mmHg (35.0-45.0); BG PH 7.393 (7.350-7.450); BG PO2 103.7 mmHg (75.0-100.0); BG SAMPLE SITE LEFT RADIAL; BG TOTAL HEMOGLOBIN 8.4 g/dL (12.0-18.0); BG VENT MODE VENT - AC
[2020-07-07] MEDS ORDERED: ALBUMIN HUMAN 25GM/100ML (25%) IV NR (09:30)
[2020-07-07] MEDS: FOLIC ACID 1MG TABLET PO SCH (10:28)
[2020-07-07] MEDS: MULTIVITAMINS,THER W-MINERALS TABLET PO SCH (10:28)
[2020-07-07] MEDS: THIAMINE HCL 100MG TABLET PO SCH (10:28)
[2020-07-07] MEDS: SODIUM BICARBONATE 50 MEQ in DEXTROSE 5% WATER 1,000 ML IV SCH (10:29)
[2020-07-07] MEDS ORDERED: ADENOSINE 3 MG/ML 2ML VIAL IV NR ×2 (11:07)
[2020-07-07] MEDS ORDERED: AMIODARONE HCL 900 MG in DEXT 5% WATER 482 ML IV SCH (12:00)
[2020-07-07 12:11] LABS: NUCLEATED RED BLOOD CELLS 18 /100 WBC
[2020-07-07 12:12] LABS: PLATELET ESTIMATE NORMAL
[2020-07-07] MEDS ORDERED: AMIODARONE HCL 150 MG in DEXT 5% WATER 100 ML IV NR (12:30)
[2020-07-07] MEDS ORDERED: AMIODARONE HCL 50MG/ML 3ML VIAL IV ONE (13:00)
[2020-07-07] MEDS ORDERED: CALCIUM CHLORIDE 1GM/10ML SYR IV ONE (13:00)
[2020-07-07] MEDS ORDERED: ADENOSINE 3 MG/ML 2ML VIAL IV ONE (13:00)
[2020-07-07] MEDS ORDERED: MAGNESIUM SULFATE 4G IN WATER 100ML PREMIX IV ONE (13:00)
[2020-07-07] MEDS ORDERED: EPINEPHRINE 0.1MG/ML (1:10,000) 10ML SYR ONE (13:00)
== END 2020-07-07 18:22 | disposition expired | DRG 720 ==
LOC: ER 10:00 → 6WST 15:14 → ENRESERV 19:04 → 5EST 07-04 11:19 → MICUNO 07-05 10:00 → MICUSO 07-05 22:30
PROVIDERS: ADMIT Internal Medicine; ATTEND Internal Medicine
PROC: 5A1945Z Respiratory Ventilation, 24-96 Consecutive Hours (ICD-10-PCS; 2020-07-05)
PROC: 0BH17EZ Insertion of Endotracheal Airway into Trachea, Via Natural or Artificial Opening (ICD-10-PCS; 2020-07-05)
PROC: 02H633Z Insertion of Infusion Device into Right Atrium, Percutaneous Approach (ICD-10-PCS; 2020-07-06)
PROC: B548ZZA Ultrasonography of Superior Vena Cava, Guidance (ICD-10-PCS; 2020-07-06)
PROC: 30233K1 Transfusion of Nonautologous Frozen Plasma into Peripheral Vein, Percutaneous Approach (ICD-10-PCS; 2020-07-06)
PROC: 5A12012 Performance of Cardiac Output, Single, Manual (ICD-10-PCS; principal; 2020-07-07)
PROC: 5A2204Z Restoration of Cardiac Rhythm, Single (ICD-10-PCS; 2020-07-07)
DX: A41.9 Sepsis, unspecified organism (principal); K80.43 Calculus of bile duct with acute cholecystitis with obstruction; F20.9 Schizophrenia, unspecified; E88.09 Other disorders of plasma-protein metabolism, not elsewhere classified; F12.90 Cannabis use, unspecified, uncomplicated; F17.210 Nicotine dependence, cigarettes, uncomplicated; I10 Essential (primary) hypertension; K76.0 Fatty (change of) liver, not elsewhere classified; N39.0 Urinary tract infection, site not specified; K86.0 Alcohol-induced chronic pancreatitis; K70.40 Alcoholic hepatic failure without coma; E43 Unspecified severe protein-calorie malnutrition; G92 Toxic encephalopathy; I46.9 Cardiac arrest, cause unspecified; J96.01 Acute respiratory failure with hypoxia; R65.21 Severe sepsis with septic shock; B35.1 Tinea unguium; D53.9 Nutritional anemia, unspecified; D68.9 Coagulation defect, unspecified; D69.6 Thrombocytopenia, unspecified; D75.89 Other specified diseases of blood and blood-forming organs; E16.2 Hypoglycemia, unspecified; D18.1 Lymphangioma, any site; E86.1 Hypovolemia; E87.1 Hypo-osmolality and hyponatremia; E87.0 Hyperosmolality and hypernatremia; E87.2 Acidosis; E87.5 Hyperkalemia; I11.0 Hypertensive heart disease with heart failure; I47.1 Supraventricular tachycardia; I48.0 Paroxysmal atrial fibrillation; I49.01 Ventricular fibrillation; J69.0 Pneumonitis due to inhalation of food and vomit; K70.31 Alcoholic cirrhosis of liver with ascites; R57.1 Hypovolemic shock; N17.9 Acute kidney failure, unspecified; K83.8 Other specified diseases of biliary tract; K85.20 Alcohol induced acute pancreatitis without necrosis or infection; F10.239 Alcohol dependence with withdrawal, unspecified; G93.41 Metabolic encephalopathy; Z59.0 Homelessness; Z82.49 Family history of ischemic heart disease and other diseases of the circulatory system; Z68.41 Body mass index [BMI] 40.0-44.9, adult; Z90.49 Acquired absence of other specified parts of digestive tract; Z56.0 Unemployment, unspecified
CPT/HCPCS: 31500; 36415; 36556; 36600; 71045; 71250; 74177; 76705; 76937; 80048; 80053; 80061; 80076; 80305; 80320; 81003; 82140; 82150; 82248; 82270; 82375; 82550; 82607; 82728; 82746; 82805; 82962; 83036; 83540; 83550; 83605; 83735; 84100; 84145; 84439; 84443; 84481; 85025; 85379; 86141; 86705; 86709; 86803; 86850; 86900; 86927; 87070; 87106; 87340; 87389; 87426; 87635; 93005; 93306; 93970; 94003; 94640; 96365; 99291; A6261; C1752; C1893; J0153; J0282; J0330; J0456; J0696; J1170; J1200; J1630; J1642; J2060; J2185; J2250; J2270; J2370; J2405; J3010; J3430; J3475; J3480; J3490; J7030; J7040; J7050; J7060; J7070; J7608; P9017; P9047; Q9967; G0480